=== PATIENT | female | born 1980 | race Two or more races ===

== ENCOUNTER 2021-04-04 08:04 | Emergency (ER) | payer MEDICAID, OTHER ==
[~2021-04-04] VITALS: Ht 152.4 cm; Wt 110.2 kg
[2021-04-04 08:07] VITALS: BP 142/73
[2021-04-19] MEDS ORDERED: SIMV-8 PO (22:55)
[2021-04-19] MEDS ORDERED: MONT-8 PO (22:55)
[2021-04-19] MEDS ORDERED: FER325T PO (22:55)
[2021-04-19] MEDS ORDERED: CARV3.1240 PO (22:55)
[2021-04-19] MEDS ORDERED: TRAZ50TA2 PO (22:55)
[2021-04-19] MEDS ORDERED: ASPI-325 PO (22:55)
[2021-04-19] MEDS ORDERED: SPIR25TA8 PO (22:55)
[2021-04-19] MEDS ORDERED: LEVO100T8 PO (22:55)
== END 2021-04-04 09:40 | disposition home or self-care (01) ==
LOC: ER 08:04
DX: S30.854A Superficial foreign body of vagina and vulva, initial encounter (principal); W45.8XXA Other foreign body or object entering through skin, initial encounter; Y93.89 Activity, other specified; Y92.89 Other specified places as the place of occurrence of the external cause; Y99.8 Other external cause status